=== PATIENT | female | born 1990 | race Caucasian/White ===

== ENCOUNTER 2016-10-26 10:29 | Emergency (ER) | payer OTHER ==
[2016-10-26 11:11] VITALS: TEMP 98.2; BMI 20.6
[2016-10-26] MEDS ORDERED: ACETAMINOPHEN 325 MG/10 ML SUSP PO ONE (12:40)
[2016-10-26] MEDS ORDERED: IBUPROFEN 600 MG TAB PO ONE (12:45)
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
[2016-10-26] MEDS ORDERED: Ibuprofen Oral Suspension 100 MG/5 ML UDC ONE (12:49)
[2016-10-26] MEDS: IBUPROFEN 800 MG TAB PO ONE ×2 (12:51→12:55)
[2016-10-26 13:07] VITALS: BP 132/82; PULSE 81
== END 2016-10-26 13:06 | disposition home or self-care (01) ==
LOC: ED 10:29
DX: R51 Headache (principal); S00.93XA Contusion of unspecified part of head, initial encounter; M54.2 Cervicalgia; M54.5 Low back pain; V49.50XA Passenger injured in collision with unspecified motor vehicles in traffic accident, initial encounter; Y93.9 Activity, unspecified; Y92.410 Unspecified street and highway as the place of occurrence of the external cause
CPT/HCPCS: 99283; J3490